=== PATIENT | female | born 1990 | race Caucasian/White ===

== ENCOUNTER 2016-09-21 19:51 | Emergency (ER) | payer SELFPAY ==
[2016-09-21] MEDS ORDERED: Sodium Chloride 0.9% 1,000 ML ONE (20:16)
[2016-09-21] MEDS ORDERED: Acetaminophen 325 MG TAB ONE (20:17)
[2016-09-21 20:22] LABS: Bilirubin Negative (Negative); Blood, Urine Negative (Negative); Clarity Clear (Clear); Glucose, Urine (Dipstick) Negative (Negative); Leukocyte Trace (Negative); Nitrite Negative (Negative); Protein, Urine (Dipstick) Negative (Neg-Trace); Specific Gravity, Urine 1.015 (1.005-1.030); pH, Urine 6.5 (5.0-9.0)
[2016-09-21 20:31] LABS: BHCG - Serum Negative (NEGATIVE)
[2016-09-21 20:32] LABS: Pregs Control Bar Appear? YES (CONTROL BAR)
[2016-09-21 20:33] LABS: ALT (SGPT) 9 U/L (8-55); AST (SGOT) 12 U/L (5-34); Albumin 4.2 g/dL (3.5-5.0); Alkaline Phosphatase 91 U/L (40-150); Anion Gap 15 mmol/L (10-20); BUN (Urea Nitrogen) 7 mg/dL (7.0-18.7); Bilirubin, Total 0.3 mg/dL (0.2-1.2); Calc. Creatinine Clearance 0 mL/min (70-130); Calcium 9.3 mg/dL (7.8-10.44); Carbon Dioxide 23 mmol/L (22-29); Chloride 101 mmol/L (98-107); Estimated GFR-MDRD Greater than 90; Globulin 3.2 g/dL (2.4-3.5); Glucose 106 mg/dL (70-105); Potassium 3.4 mmol/L (3.5-5.1); Protein, Total 7.4 g/dL (6.0-8.3)
[2016-09-21 20:37] LABS: Bacteria/HPF Rare-Few HPF (None Seen); RBC/HPF 0-3 HPF (0-3); Sperm/HPF Rare HPF (None Seen)
[2016-09-21 20:39] LABS: #Basophils 0.1 thou/uL (0.0-0.2); #Eosinphils 0.1 thou/uL (0.0-0.7); #Lymphocytes 3.2 thou/uL (1.20-3.40); #Monocytes 0.6 thou/uL (0.11-0.59); #Neutrophils 4.4 thou/uL (1.40-6.50); %Basophils 1.4 % (0.0-1.0); %Eosinophils 1.4 % (0.0-10.0); %Lymphocytes 37.7 % (21.0-51.0); %Monocytes 6.9 % (0.0-10.0); %Neutrophils 52.7 % (42.0-75.0); Hemoglobin 11.5 g/dL (12.0-16.0); Mean Corpuscular HGB CONC 31.8 g/dL (32.0-36.0); Mean Corpuscular Hemoglobin 22.3 pg (27.0-31.0); Mean Corpuscular Volume 70.2 fl (81.0-99.0); Mean Platelet Volume 9.1 fL (7.4-10.4); Platelet Count 205 thou/uL (130-400); RBC Distribution Width 13.3 % (11.5-14.5); Red Blood Cell (RBC) Count 5.16 mill/uL (4.20-5.40); Sodium 136 mmol/L (136-145); White Blood Cell (WBC) Count 8.4 thou/uL (4.8-10.8)
[2016-09-21 20:49] LABS: Hypochromia SLIGHT = 6-15 cells (100X) (0-5/hpf); MDiff Complete? YES; Microcytosis MODERATE=15-30 cells (100X) (0-5/hpf); PLT Morphology Comment Appears Adequate
== END 2016-09-21 21:21 | disposition home or self-care (01) ==
LOC: NAV ERS 19:51
DX: R10.9 Unspecified abdominal pain (principal)
CPT/HCPCS: 80053; 81003; 81015; 84703; 85025; 96360; J7050

== ENCOUNTER 2018-03-23 22:01 | Emergency (ER) | payer SELFPAY | END 2018-03-23 22:33 | disposition home or self-care (01) | LOC: NAV ERS 22:01 | DX: B34.9 Viral infection, unspecified (principal); F17.220 Nicotine dependence, chewing tobacco, uncomplicated | CPT/HCPCS: 99281 ==

== ENCOUNTER 2019-01-18 19:23 | Emergency (ER) | payer BC, SELFPAY | END 2019-01-18 19:50 | disposition home or self-care (01) | LOC: NAV ERS 19:23 | DX: J06.9 Acute upper respiratory infection, unspecified (principal); F17.220 Nicotine dependence, chewing tobacco, uncomplicated | CPT/HCPCS: 99281 ==

== ENCOUNTER 2021-04-26 09:24 | Emergency (ER) | payer BC, SELFPAY ==
[2021-04-26 20:20] LABS: SARS-CoV-2 PCR by NAA DETECTED (NotDetected)
== END 2021-04-26 10:14 | disposition home or self-care (01) ==
LOC: NAV ERS 09:24
DX: U07.1 COVID-19 (principal); F17.220 Nicotine dependence, chewing tobacco, uncomplicated
CPT/HCPCS: 87804; 99283; U0003; U0005

== ENCOUNTER 2024-04-27 12:07 | Emergency (ER) | payer MEDICAID, SELFPAY ==
[2024-04-27] MEDS ORDERED: Morphine 2 MG/ML VIAL ONE (12:40)
[2024-04-27] MEDS ORDERED: Sodium Chloride 0.9% 1,000 ML ONE (12:40)
[2024-04-27 12:52] LABS: #Basophils 0.1 thou/uL (0.0-0.2); #Eosinophils 0.2 thou/uL (0.0-0.7); #Lymphocytes 2.4 thou/uL (1.20-3.40); #Monocytes 0.9 thou/uL (0.11-0.59); #Neutrophils 9.8 thou/uL (1.40-6.50); %Basophils 0.8 % (0.0-1.0); %Eosinophils 1.3 % (0.0-10.0); %Lymphocytes 17.8 % (21.0-51.0); %Monocytes 6.5 % (0.0-10.0); %Neutrophils 73.7 % (42.0-75.0); Hematocrit 41.4 % (36.0-47.0); Hemoglobin 13.7 g/dL (12.0-16.0); Mean Corpuscular HGB CONC 33.1 g/dL (32.0-36.0); Mean Corpuscular Hemoglobin 27.8 pg (27.0-31.0); Mean Corpuscular Volume 83.9 fl (78.0-98.0); Mean Platelet Volume 9.6 fL (7.4-10.4); Platelet Count 253 10x3/uL (130-400); RBC Distribution Width 10.1 % (11.5-14.5); Red Blood Cell (RBC) Count 4.93 mill/uL (4.20-5.40); White Blood Cell (WBC) Count 13.3 10x3/uL (4.8-10.8)
[2024-04-27 13:04] LABS: BHCG - Serum Negative (NEGATIVE); Pregs Control Bar Appear? YES (CONTROL BAR)
[2024-04-27 13:07] LABS: ALT (SGPT) 18 U/L (8-55); AST (SGOT) 13 U/L (5-34); Albumin 4.1 g/dL (3.5-5.0); Alkaline Phosphatase 72 U/L (40-110); Anion Gap 13 mmol/L (10-20); BUN (Urea Nitrogen) 8 mg/dL (7.0-18.7); Bilirubin, Total 0.6 mg/dL (0.2-1.2); Calc. Creatinine Clearance 0 mL/min (70-130); Calcium 9.8 mg/dL (7.8-10.44); Carbon Dioxide 26 mmol/L (22-29); Chloride 102 mmol/L (98-107); Estimated GFR 117; Globulin 3.7 g/dL (2.4-3.5); Glucose 102 mg/dL (70-105); Lipase 6 U/L (8-78); Potassium 4.1 mmol/L (3.5-5.1); Protein, Total 7.8 g/dL (6.0-8.3); Sodium 137 mmol/L (136-145)
[2024-04-27 14:00] LABS: Bilirubin Negative (Negative); Blood, Urine Large (Negative); Clarity Clear (Clear); Glucose, Urine (Dipstick) Negative (Negative); Ketone, Urine Negative (Negative); Leukocyte Moderate (Negative); Nitrite Negative (Negative); Protein, Urine (Dipstick) 100 mg/dL (Neg-Trace); Urobilinogen 0.2 mg/dL (Less than 2)
[2024-04-27 14:13] LABS: Bacteria/HPF 3+ HPF (None Seen); CAUTI Indications for Culture Pelvic or flank pain; RBC/HPF 21-50 HPF (0-3); Renal Epithelial 0-3 HPF (None Seen); Squamous Epithelial 0-3 HPF (0-3); Transitional Epithelial 0-3 HPF (None Seen); WBC/HPF Greater than 50 HPF (0-3)
[2024-04-27 14:14] LABS: Urine Culture Reflex Yes Yes
[2024-04-27] MEDS ORDERED: cefTRIAXone (ROCEPHIN) 2 GM VIAL ONE (14:19)
[2024-04-27] MEDS ORDERED: Sodium Chloride 0.9% 100 ML ONE (14:19)
[2024-04-27] MEDS ORDERED: diphenhydrAMINE 50 MG/ML VIAL ONE (14:45)
[2024-04-27] MEDS ORDERED: Cipro 250 MG TAB ONE (14:56)
== END 2024-04-27 15:40 | disposition home or self-care (01) ==
LOC: NAV ERS 12:07
DX: N10 Acute pyelonephritis (principal); F17.220 Nicotine dependence, chewing tobacco, uncomplicated
CPT/HCPCS: 74176; 80053; 81001; 83690; 84703; 85025; 87077; 87086; 87186; 96374; 96375; J0696; J1200; J2272; J7030